=== PATIENT | male | born 1950 | race Two or more races ===

== ENCOUNTER 2023-10-07 12:38 | Inpatient (IN) | payer OTHER, MEDICAID ==
[~2023-10-07] VITALS: Ht 165.1 cm; Wt 70.4 kg
[2023-10-07] MEDS: ONDANSETRON HCL 4 MG/2 ML VIAL IV ONE (14:20)
[2023-10-07] MEDS: InsuLIN REG 1unit/0.01ml Soln (100units/ml) IV ONE (14:20)
[2023-10-07] MEDS: SODIUM CHLORIDE 0.9% 500 ML IVB ONE (14:21)
[2023-10-07 14:27] LABS: Hematocrit 34.3 % (41.0-53.0); Hemoglobin 11.2 g/dL (13.5-17.5); Mean Corpuscular Hemoglobin 30.2 pg (28.0-32.0); Mean Corpuscular Hgb Conc. 32.7 g/dL (32.0-36.0); Mean Corpuscular Volume 92.3 fL (80.0-100.0); Platelet Count (auto) 305 10^3/uL (140-450); Red Blood Cells 3.71 10^6/uL (4.5-5.90); White Blood Cell 26.7 10^3/uL (4.4-10.8)
[2023-10-07 14:41] VITALS: RESP 19; O2SAT 100
[2023-10-07 14:46] LABS: Basophils % (manual) 0 (0.0-2.0); Blast Cells 0; Eosinophils % (manual) 0 (0-7); Metamyelocytes % 0; Myelocytes % 0; Promyelocytes % 0; Reactive Lymphocytes 0
[2023-10-07 14:50] LABS: Alanine Aminotransferase 14 U/L (7-40); Albumin 4.1 g/dL (3.2-4.8); Alkaline Phosphatase 90 U/L (46-116); Anion Gap 19 (5-15); Aspartate Aminotransferase 12 U/L (13-40); BUN/Creatinine Ratio 23.9 (10.0-20.0); Blood Urea Nitrogen 50 mg/dL (9-23); Calcium 9.1 mg/dL (8.7-10.4); Carbon Dioxide 15 mmol/L (20-30); Chloride 95 mmol/L (98-107); Lipase 30 U/L (12-53); Potassium 5.2 mmol/L (3.5-5.1); Sodium 129 mmol/L (136-145); Total Protein 7.2 g/dL (5.7-8.2)
[2023-10-07 15:10] LABS: Glucose 524 mg/dL (74-106)
[2023-10-07] MEDS ORDERED: DEXTROSE (50%) 50ML SYRG IV PRN ×2 (15:15→20:00)
[2023-10-07 15:58] LABS: Partial Thromboplastin Time 28.5 SEC (24.5-34.5); Prothrombin Time 10.6 sec (9.3-11.8)
[2023-10-07] MEDS: INSULIN DRIP 100 UNIT/100ML 100 ML IV SCH ×2 (15:58→20:06)
[2023-10-07 16:00] LABS: Erythrocyte Sedimentation Rate 62 mm/hr (0-20)
[2023-10-07] MEDS: ACETYLCYSTEINE IV ONE ×2 (16:00→18:27)
[2023-10-07] MEDS: D5W 5% IV ONE ×2 (16:00→18:27)
[2023-10-07] MEDS: INSULIN LANTUS (GLARGINE) 1 /0.01ml (100units/ml) SC ONE (16:03)
[2023-10-07 16:39] LABS: Band Neutrophils % (manual) 8; Lymphocytes % (manual) 5 (10.0-50.0); Monocytes % (manual) 3 (0-12)
[2023-10-07 16:40] LABS: Platelet Estimate Adequate
[2023-10-07] MEDS: ACCU-CHEK COMFORT CURVE STRIP VI SCH ×2 (16:52→21:11)
[2023-10-07] MEDS ORDERED: MORPHINE SULFATE INJ 2 MG/ml SYRG IV PRN (19:15)
[2023-10-07] MEDS ORDERED: ACETAMINOPHEN 325 MG TAB PO PRN (19:15)
[2023-10-07] MEDS ORDERED: NITROGLYCERIN 0.4 MG SL TAB SL PRN (19:15)
[2023-10-07] MEDS ORDERED: DOCUSATE SOD 100 MG CAP PO PRN (19:15)
[2023-10-07 19:30] VITALS: PULSE 73; RESP 13; O2SAT 99
[2023-10-07] MEDS: ACETYLCYSTEINE 200MG/ML IV SOL 7,300 MG in D5W 5% 1,000 ML IV SCH (20:53)
[2023-10-07] MEDS: FAMOTIDINE (10MG/ML) 2ML VL IV SCH (21:53)
[2023-10-08] MEDS: HYDROcodone-ACET 5/325MG TAB PO PRN (01:18)
[2023-10-08 05:08] LABS: Hematocrit 34.7 % (41.0-53.0); Hemoglobin 11.9 g/dL (13.5-17.5); Mean Corpuscular Hemoglobin 30.4 pg (28.0-32.0); Mean Corpuscular Hgb Conc. 34.3 g/dL (32.0-36.0); Mean Corpuscular Volume 88.6 fL (80.0-100.0); Platelet Count (auto) 292 10^3/uL (140-450); Red Blood Cells 3.92 10^6/uL (4.5-5.90); Red Cell Distribution Width 13.6 % (11.8-14.3); White Blood Cell 27.4 10^3/uL (4.4-10.8)
[2023-10-08 05:17] LABS: Alanine Aminotransferase 13 U/L (7-40); Alkaline Phosphatase 83 U/L (46-116); Anion Gap 11 (5-15); BUN/Creatinine Ratio 29.7 (10.0-20.0); Blood Urea Nitrogen 47 mg/dL (9-23); Calcium 9.1 mg/dL (8.7-10.4); Carbon Dioxide 24 mmol/L (20-30); Chloride 100 mmol/L (98-107); Potassium 3.6 mmol/L (3.5-5.1)
[2023-10-08 05:18] LABS: Albumin 3.8 g/dL (3.2-4.8); Aspartate Aminotransferase < 8 U/L (13-40); Bilirubin, Total 0.6 mg/dL (0.2-1.0); Total Protein 6.7 g/dL (5.7-8.2)
[2023-10-08 05:20] LABS: Basophils % (manual) 0 (0.0-2.0); Blast Cells 0; Eosinophils % (manual) 0 (0-7); Glucose 133 mg/dL (74-106); Metamyelocytes % 0; Myelocytes % 0; Promyelocytes % 0; Reactive Lymphocytes 0; Sodium 135 mmol/L (136-145)
[2023-10-08] MEDS ORDERED: DEXTROSE (50%) 50ML SYRG IV PRN ×2 (06:45)
[2023-10-08] MEDS: ACETYLCYSTEINE IV ONE (06:50)
[2023-10-08] MEDS: D5W 5% IV ONE (06:50)
[2023-10-08] MEDS: ONDANSETRON HCL 4 MG/2 ML VIAL IV PRN (07:03)
[2023-10-08 07:20] VITALS: PULSE 94; RESP 12; O2SAT 97
[2023-10-08] MEDS: ACCU-CHEK COMFORT CURVE STRIP VI SCH (08:02)
[2023-10-08] MEDS: InsuLIN REG 1unit/0.01ml Soln (100units/ml) SC SCH (08:07)
[2023-10-08 08:21] LABS: Band Neutrophils % (manual) 4; Lymphocytes % (manual) 3 (10.0-50.0); Monocytes % (manual) 3 (0-12); Platelet Estimate Adequate
[2023-10-08] MEDS: cefTRIAXone 1GM/50ML D5W 50 ML IV SCH (09:30)
[2023-10-08] MEDS: INSULIN LANTUS (GLARGINE) 1 /0.01ml (100units/ml) SC SCH (09:41)
[2023-10-08] MEDS ORDERED: VANCOMYCIN PER PHARMACY 0 MG IV SCH (10:45)
[2023-10-08] MEDS: VANCOMYCIN 1.5GM/300ML 300 ML IV ONE (11:28)
[2023-10-08] MEDS: SODIUM CHLORIDE 0.9% 1,000 ML IV SCH (11:29)
[2023-10-08 12:36] LABS: Urine Bacteria FEW /hpf (None Seen); Urine Blood Negative /uL (Negative); Urine Clarity Clear (Clear); Urine Color Light-Yellow (Yellow); Urine Protein, UAD TRACE (Negative); Urine Specific Gravity 1.021 (1.001-1.035); Urine Urobilinogen Normal (Negative); Urine WBC 1 /hpf (0 - 3)
[2023-10-08 12:46] LABS: Amphetamine Screen, Urine Neg (NEGATIVE); Barbiturate Scree,Urine Neg (NEGATIVE); Benzodiazephine Screen, Urine Neg (NEGATIVE); Cannabinoid Screen, Urine Neg (NEGATIVE); Cocaine Screen, Urine Neg (NEGATIVE); Opiate Scree,Urine Neg (NEGATIVE); Phencyclidine Screen, Urine Neg (NEGATIVE)
[2023-10-08] MEDS: diphenhdrAMINE HCL 50 MG/1 ML VL IV PRN (19:08)
[2023-10-08 19:13] LABS: Alanine Aminotransferase 12 U/L (7-40); Albumin 3.5 g/dL (3.2-4.8); Alkaline Phosphatase 79 U/L (46-116); Anion Gap 9 (5-15); Aspartate Aminotransferase < 8 U/L (13-40); BUN/Creatinine Ratio 27.9 (10.0-20.0); Bilirubin, Total 0.4 mg/dL (0.2-1.0); Blood Urea Nitrogen 43 mg/dL (9-23); Calcium 9.4 mg/dL (8.7-10.4); Carbon Dioxide 23 mmol/L (20-30); Chloride 104 mmol/L (98-107); Glucose 175 mg/dL (74-106); Potassium 3.4 mmol/L (3.5-5.1); Sodium 136 mmol/L (136-145); Total Protein 6.4 g/dL (5.7-8.2)
[2023-10-08 19:30] VITALS: PULSE 79; RESP 16; O2SAT 97
[2023-10-08] MEDS: diphenhdrAMINE HCL 50 MG/1 ML VL ONE (19:43)
[2023-10-08] MEDS: LORazepam 2MG/ML-1ML VIAL ONE (19:45)
[2023-10-08] MEDS: LORazepam 2MG/ML-1ML VIAL IV PRN (19:47)
[2023-10-08] MEDS: POTASSIUM CHL 20 Meq TABLET PO ONE (20:45)
[2023-10-09] VITALS (10 sets, daily range): BP systolic 125–157; BP diastolic 50–64; PULSE 81–108; RESP 16–22; TEMP 98–100.1; O2SAT 94–100
[2023-10-09] MEDS: VANCOMYCIN 1GM/200ML 200 ML IV SCH (04:57)
[2023-10-09] MEDS ORDERED: HALOPERIDOL 1 MG TAB PO PRN (11:30)
[2023-10-09 13:22] LABS: Hematocrit 33.1 % (41.0-53.0); Hemoglobin 10.9 g/dL (13.5-17.5); Mean Corpuscular Hemoglobin 29.3 pg (28.0-32.0); Mean Corpuscular Hgb Conc. 32.8 g/dL (32.0-36.0); Mean Corpuscular Volume 89.4 fL (80.0-100.0); Platelet Count (auto) 278 10^3/uL (140-450); Red Cell Distribution Width 14.1 % (11.8-14.3); White Blood Cell 22.6 10^3/uL (4.4-10.8)
[2023-10-09 13:25] LABS: Basophils % (manual) 0 (0.0-2.0); Blast Cells 0; Eosinophils % (manual) 0 (0-7); Metamyelocytes % 0; Myelocytes % 0; Promyelocytes % 0; Reactive Lymphocytes 0
[2023-10-09 13:33] LABS: Chloride 109 mmol/L (98-107); Potassium 3.5 mmol/L (3.5-5.1); Sodium 140 mmol/L (136-145)
[2023-10-09 13:35] LABS: Anion Gap 9 (5-15); Calcium 9.1 mg/dL (8.7-10.4); Carbon Dioxide 22 mmol/L (20-30)
[2023-10-09 13:39] LABS: Glucose 108 mg/dL (74-106)
[2023-10-09 13:40] LABS: BUN/Creatinine Ratio 26.9 (10.0-20.0)
[2023-10-09 13:47] LABS: Blood Urea Nitrogen 32 mg/dL (9-23)
[2023-10-09 13:56] LABS: Band Neutrophils % (manual) 10; Lymphocytes % (manual) 4 (10.0-50.0); Monocytes % (manual) 4 (0-12); Platelet Estimate Adequate
[2023-10-10] VITALS (8 sets, daily range): BP systolic 135–157; BP diastolic 55–73; PULSE 72–86; RESP 16–22; TEMP 98–99.8; O2SAT 95–98
[2023-10-10 06:20] LABS: Basophils # (auto) 0 10 ^3/uL (0-0.2); Basophils % (auto) 0.1 % (0.0-2.0); Eosinophils # (auto) 0 10 ^3/uL (0-0.8); Eosinophils % (auto) 0.2 % (0.0-7.0); Hematocrit 27.7 % (41.0-53.0); Hemoglobin 9.3 g/dL (13.5-17.5); Lymphocytes # (auto) 0.9 10 ^3/uL (0.4-5.4); Lymphocytes % (auto) 4.9 % (10.0-50.0); Mean Corpuscular Hgb Conc. 33.7 g/dL (32.0-36.0); Mean Corpuscular Volume 89.2 fL (80.0-100.0); Monocytes # (auto) 0.8 10 ^3/uL (0-1.3); Monocytes % (auto) 4.4 % (0.0-12.0); Neutrophils # (auto) 16.7 10 ^3/uL (1.6-8.6); Neutrophils % (auto) 90.4 % (37.0-80.0); Platelet Count (auto) 242 10^3/uL (140-450); Red Cell Distribution Width 13.9 % (11.8-14.3); White Blood Cell 18.5 10^3/uL (4.4-10.8)
[2023-10-10 06:24] LABS: Chloride 110 mmol/L (98-107); Potassium 3.2 mmol/L (3.5-5.1); Sodium 142 mmol/L (136-145)
[2023-10-10 06:25] LABS: Anion Gap 7 (5-15); Calcium 8.5 mg/dL (8.7-10.4); Carbon Dioxide 25 mmol/L (20-30)
[2023-10-10 06:30] LABS: BUN/Creatinine Ratio 31.3 (10.0-20.0); Blood Urea Nitrogen 36 mg/dL (9-23); Glucose 126 mg/dL (74-106)
[2023-10-10] MEDS: POTASSIUM EFFERVESENT TAB 25 MEQ PO ONE (11:28)
[2023-10-11 01:00] VITALS: BP 156/72; PULSE 86; RESP 20; TEMP 99.1; O2SAT 98
[2023-10-11 05:00] VITALS: BP_SYST 136; BP_SYST 159; BP_DIAS 56; BP_DIAS 75; PULSE 61; PULSE 74; RESP 20; TEMP 97.9; TEMP 99.3; O2SAT 96; O2SAT 99
[2023-10-11 07:10] LABS: Basophils # (auto) 0 10 ^3/uL (0-0.2); Basophils % (auto) 0.1 % (0.0-2.0); Eosinophils # (auto) 0.1 10 ^3/uL (0-0.8); Eosinophils % (auto) 0.7 % (0.0-7.0); Hematocrit 28.5 % (41.0-53.0); Hemoglobin 9.8 g/dL (13.5-17.5); Lymphocytes # (auto) 0.9 10 ^3/uL (0.4-5.4); Lymphocytes % (auto) 5.3 % (10.0-50.0); Mean Corpuscular Hemoglobin 30.6 pg (28.0-32.0); Mean Corpuscular Hgb Conc. 34.5 g/dL (32.0-36.0); Mean Corpuscular Volume 88.7 fL (80.0-100.0); Monocytes # (auto) 0.7 10 ^3/uL (0-1.3); Monocytes % (auto) 4.1 % (0.0-12.0); Neutrophils % (auto) 89.8 % (37.0-80.0); Nucleated Red Blood Cells % 0.1 %; Platelet Count (auto) 257 10^3/uL (140-450); Red Blood Cells 3.21 10^6/uL (4.5-5.90); Red Cell Distribution Width 13.3 % (11.8-14.3); White Blood Cell 16.7 10^3/uL (4.4-10.8)
[2023-10-11 07:23] LABS: Anion Gap 3 (5-15); Carbon Dioxide 26 mmol/L (20-30); Chloride 106 mmol/L (98-107); Potassium 3.6 mmol/L (3.5-5.1)
[2023-10-11 07:24] LABS: Calcium 8.6 mg/dL (8.7-10.4)
[2023-10-11 07:29] LABS: BUN/Creatinine Ratio 27.7 (10.0-20.0); Blood Urea Nitrogen 28 mg/dL (9-23); Glucose 150 mg/dL (74-106)
[2023-10-11 07:39] LABS: Sodium 135 mmol/L (136-145)
[2023-10-11 08:00] VITALS: PULSE 71; PULSE 75; RESP 16; O2SAT 98
[2023-10-11 08:36] VITALS: BP 147/65; PULSE 75; RESP 16; TEMP 98.5; O2SAT 98
[2023-10-11 13:00] VITALS: BP 151/59; PULSE 74; RESP 18; TEMP 98.1; O2SAT 96
[2023-10-11 14:55] VITALS: BP 151/59; PULSE 75; RESP 16; TEMP 98.1; O2SAT 98
== END 2023-10-11 18:15 | disposition short-term general hospital (02) | DRG 871 ==
LOC: ER 12:38 → CATH ICU 19:18 → TELE 19:19 → TELE-EAST 10-08 23:50 → EAST 10-11 13:39
PROVIDERS: ADMIT Nurse Practitioner Family; ATTEND Nurse Practitioner Acute Care
DX: A40.9 Streptococcal sepsis, unspecified (principal); E11.10 Type 2 diabetes mellitus with ketoacidosis without coma; N17.0 Acute kidney failure with tubular necrosis; G93.41 Metabolic encephalopathy; L03.116 Cellulitis of left lower limb; Z59.00 Homelessness unspecified; T39.1X1A Poisoning by 4-Aminophenol derivatives, accidental (unintentional), initial encounter; R65.20 Severe sepsis without septic shock; E87.5 Hyperkalemia; E78.5 Hyperlipidemia, unspecified; I10 Essential (primary) hypertension; E03.9 Hypothyroidism, unspecified; E86.1 Hypovolemia; B95.62 Methicillin resistant Staphylococcus aureus infection as the cause of diseases classified elsewhere; Z91.199 Patient's noncompliance with other medical treatment and regimen due to unspecified reason; Y92.89 Other specified places as the place of occurrence of the external cause
CPT/HCPCS: 36415; 70450; 73700; 74176; 80048; 80053; 80307; 80320; 80329; 81001; 82962; 83036; 83690; 85007; 85025; 85027; 85610; 85652; 85730; 87040; 87077; 87186; 93005; 99291; G0378; J1815; J2405; J3490; J7060